=== PATIENT | female | born 1995 | race Two or more races ===

== ENCOUNTER → 2019-06-19 | Outpatient (CLI) | payer OTHER | END | disposition home or self-care (01) | LOC: PRENATAL 08:00 | DX: Z36.0 Encounter for antenatal screening for chromosomal anomalies (principal); O36.80X1 Pregnancy with inconclusive fetal viability, fetus 1; O35.3XX1 Maternal care for (suspected) damage to fetus from viral disease in mother, fetus 1; Z3A.25 25 weeks gestation of pregnancy ==

== ENCOUNTER 2019-09-10 11:55 | Inpatient (IN) | payer OTHER ==
[~2019-09-10] VITALS: Ht 160 cm; Wt 67.1 kg
[2019-10-02] MEDS ORDERED: PRENATAL CAPLE1 EAC1 PO (03:30)
== END 2019-10-04 15:37 | disposition home or self-care (01) | DRG 807 ==
LOC: LDR 10-02 03:15 → OB/GYN 10-02 08:45
PROVIDERS: ADMIT Specialist
PROC: 10E0XZZ Delivery of Products of Conception, External Approach (ICD-10-PCS; principal; 2019-10-02)
PROC: 10907ZC Drainage of Amniotic Fluid, Therapeutic from Products of Conception, Via Natural or Artificial Opening (ICD-10-PCS; 2019-10-02)
PROC: 3E033VJ Introduction of Other Hormone into Peripheral Vein, Percutaneous Approach (ICD-10-PCS; 2019-10-02)
PROC: 4A1HXCZ Monitoring of Products of Conception, Cardiac Rate, External Approach (ICD-10-PCS; 2019-10-02)
DX: O80 Encounter for full-term uncomplicated delivery (principal); Z37.0 Single live birth; Z3A.40 40 weeks gestation of pregnancy